=== PATIENT | male | born 1980 | race Two or more races ===

== ENCOUNTER 2023-04-23 19:07 | Emergency (ER) | payer OTHER ==
[~2023-04-23] VITALS: Ht 167.6 cm; Wt 80.9 kg
[2023-04-23 19:36] VITALS: BP 128/64; PULSE 83; RESP 18; TEMP 98.9
[2023-04-23] MEDS ORDERED: SERT-158 PO (19:44)
[2023-04-23] MEDS ORDERED: QUET25TA PO (19:44)
[2023-04-23] MEDS ORDERED: TRAZ-252 PO (19:44)
[2023-04-23] MEDS ORDERED: AMOX1TAB16 PO (20:34)
[2023-04-23] MEDS ORDERED: IBUP-1492 PO (20:34)
[2023-04-23] MEDS: IBUPROFEN 600 MG TABLET PO ONE (20:43)
[2023-04-23] MEDS: AMOX TR/POT CLAV 875 MG/125 MG TABLET PO ONE (20:43)
== END 2023-04-23 20:47 | disposition home or self-care (01) ==
LOC: EMS 19:17
DX: K04.7 Periapical abscess without sinus (principal); F41.9 Anxiety disorder, unspecified; F32.A Depression, unspecified; F17.210 Nicotine dependence, cigarettes, uncomplicated; Z98.890 Other specified postprocedural states
CPT/HCPCS: 99283

== ENCOUNTER 2023-08-25 16:54 | Emergency (ER) | payer OTHER ==
[~2023-08-25] VITALS: Ht 170.2 cm; Wt 72.7 kg
[~2023-08-25 16:54] MED LIST: AMOX-457 PO; IBUP-1492 PO; QUET25TA PO; SERT-158 PO; TRAZ-252 PO
[2023-08-25 16:59] VITALS: BP 151/84; PULSE 90; RESP 16; TEMP 98.1
[2023-08-25] MEDS ORDERED: TRAZ-257 PO (17:01)
[2023-08-25] MEDS ORDERED: DULO-114 PO (17:01)
[2023-08-25 19:01] LABS: APPEARANCE,URINE CLEAR (CLEAR); BILIRUBIN,URINE NEGATIVE (NEGATIVE); COLOR,URINE LIGHT YELLOW (YELLOW); GLUCOSE, URINE (UA) NEGATIVE (NEGATIVE); KETONES,URINE NEGATIVE (NEGATIVE); LEUKOCYTE ESTERASE ,URINE LARGE (NEGATIVE); NITRATE,URINE NEGATIVE (NEGATIVE); OCCULT BLOOD,URINE NEGATIVE (NEGATIVE); PROTEIN,URINE NEGATIVE (NEGATIVE); SPECIFIC GRAVITIY, URINE 1.026 (1.003-1.030); UROBILINOGEN,URINE <=1.0 mg/dL (<=1.0)
[2023-08-25 19:20] LABS: RBC,URINE None Seen /HPF (0-2); WBC,URINE 51-100 /HPF (0-5)
[2023-08-25 19:21] LABS: BACTERIA,URINE Few /HPF (None Seen)
[2023-08-25] MEDS ORDERED: DOXY-354 PO (19:25)
[2023-08-25] MEDS ORDERED: QUET50TA24 PO (19:29)
[2023-08-25] MEDS: CefTRIAXone SODIUM 1 GM/VIAL IM ONE (19:32)
[2023-08-25] MEDS: LIDOCAINE/PF 1% 2 ML VIAL IM ONE (19:32)
== END 2023-08-25 19:55 | disposition home or self-care (01) ==
LOC: EMS 17:01
DX: N34.2 Other urethritis (principal); F41.9 Anxiety disorder, unspecified; F32.A Depression, unspecified; J98.19 Other pulmonary collapse; F17.210 Nicotine dependence, cigarettes, uncomplicated
CPT/HCPCS: 99283; 81001; 87086; 87186; 96372; J0696; J3490

== ENCOUNTER 2024-03-28 00:38 | Emergency (ER) | payer OTHER ==
[~2024-03-28] VITALS: Ht 167.6 cm; Wt 80.9 kg
[~2024-03-28 00:38] MED LIST changes: -AMOX-457 PO; +DOXY-354 PO; +DULO-114 PO; -IBUP-1492 PO; -QUET25TA PO; +QUET50TA24 PO; -SERT-158 PO; -TRAZ-252 PO; +TRAZ-257 PO
[2024-03-28 00:46] VITALS: TEMP 98.1
[2024-03-28] MEDS ORDERED: METH4TAB3 PO (01:32)
[2024-03-28] MEDS: KETOROLAC TROMETHAMINE 30 MG/ML VIAL IM ONE (01:36)
[2024-03-28 01:37] VITALS: BP 120/70; PULSE 75; RESP 16; O2SAT 99
== END 2024-03-28 01:44 | disposition home or self-care (01) ==
LOC: EMS 00:41
DX: M54.12 Radiculopathy, cervical region (principal); F32.A Depression, unspecified; F41.9 Anxiety disorder, unspecified; F17.210 Nicotine dependence, cigarettes, uncomplicated
CPT/HCPCS: 99283; 96372; J1885